=== PATIENT | male | born 1965 | race Caucasian/White ===

== ENCOUNTER 2021-09-21 03:13 | Inpatient (IN) ==
[2021-09-21 03:31] VITALS: BMI 27.9
[2021-09-21 04:03] LABS: BASOPHILS # (AUTO) 0.1 X10^3/uL (0.0-0.1); BASOPHILS % (AUTO) 1.4 % (0.2-1.0); EOSINOPHILS % (AUTO) 0.4 % (0.9-2.9); HEMATOCRIT 34.5 % (42.0-54.0); HEMOGLOBIN 12.4 g/dL (13.5-18.0); LYMPHOCYTES # (AUTO) 1.3 X10^3/uL (1.3-2.9); LYMPHOCYTES % (AUTO) 22.4 % (21.0-51.0); MEAN CORPUSCULAR HEMOGLOBIN 32.5 pg (27.0-34.0); MEAN CORPUSCULAR HGB CONC 36.1 g/dL (33.0-35.0); MEAN CORPUSCULAR VOLUME 90.2 fL (80.0-100.0); MEAN PLATELET VOLUME 9.3 fL (7.4-11.0); MONOCYTES # (AUTO) 0.8 x10^3/uL (0.3-0.8); MONOCYTES % (AUTO) 14.5 % (0.0-13.0); NEUTROPHILS # (AUTO) 3.5 x10^3/uL (2.2-4.8); NEUTROPHILS % (AUTO) 61.3 % (42.0-75.0); RED BLOOD COUNT 3.82 X10^6/uL (4.7-6.0); RED CELL DISTRIBUTION WIDTH 13.9 % (11.6-16.5); WHITE BLOOD COUNT 5.7 X10^3/uL (3.6-10.0)
[2021-09-21 04:42] LABS: ALANINE AMINOTRANSFERASE 52 Units/L (12-78); ALBUMIN 3.8 g/dL (3.4-5.0); ALKALINE PHOSPHATASE 88 Units/L (46-116); ASPARTATE AMINO TRANSFERASE 55 Units/L (15-37); BAND NEUTROPHILS % 8 % (0-10); BLOOD UREA NITROGEN 20 mg/dL (7-18); CALCIUM 7.8 mg/dL (8.5-10.1); CARBON DIOXIDE 27.7 mmol/L (21-32); CHLORIDE 91 mmol/L (98-107); CKMB % 2.3 % (<4); CREATINE KINASE 185 Units/L (39-308); CREATININE 1.54 mg/dL (0.70-1.30); PLATELET MORPHOLOGY COMMENT NORMAL (NORMAL); eGFR NON BLACK RACES 50 (>60)
[2021-09-21 04:43] LABS: CREATINE KINASE MB 4.3 ng/mL (0-4.0)
[2021-09-21 04:44] LABS: SODIUM 122 mmol/L (136-145)
--- NOTE | 2021-09-21 04:52 | CT ---
PROCEDURE: CT Head without Contrast .HISTORY: Blurred vision with nausea.TECHNIQUE: Axial images were performed through the head without the administration of IV contrast with multiplanar reformations . Dose reduction techniques including Automated Exposure Control (AEC) and adjustment of mA and kV were utilized .COMPARISON: 01/20/2021.TECHNICAL QUALITY: Satisfactory .FINDINGS:Brain shows no mass, hemorrhage, or acute stroke.Minimal periventricular old micro ischemic changes.Ventricles are normal size for patient's age.No acute skull or scalp abnormality.Visualized sinuses and mastoids are clear.IMPRESSION:1. No acute intracranial abnormality.2. Mild senescent changes.Electronically signed by: Dick Awan (Sep 21, 2021 04:50:49)
--- NOTE | 2021-09-21 05:02 | RAD ---
PROCEDURE: Chest X-ray 1 View .HISTORY: Chest pain and nausea.TECHNIQUE: AP view .COMPARISON: 01/20/2021.TECHNICAL QUALITY: Satisfactory .FINDINGS:Normal size heart .Mediastinum and hilar regions show no masses or lymphadenopathy .Normal central vascularity .No pulmonary consolidation, masses, pleural fluid, or pneumothorax .No acute bony abnormality .IMPRESSION:No active cardiopulmonary disease .Electronically signed by: Dick Awan (Sep 21, 2021 05:01:20)
[2021-09-21] MEDS ORDERED: ZOFRAN INJ 4 MG VIAL IVP ONE ×3 (05:17→07:01)
[2021-09-21] MEDS ORDERED: ZOFRAN INJ 4 MG VIAL ONE ×2 (05:20→06:52)
[2021-09-21] MEDS ORDERED: NS 1,000 ML IV 1,000 ML ONE (05:21)
[2021-09-21] MEDS ORDERED: NS 1,000 ML IV 1,000 ML IV ONE (05:35)
--- NOTE | 2021-09-21 05:55 | DR.CP ---
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 PT STATES "IT COULD BE MY ACID REFLUX". PT STATES HE WAS NAUSEOUS "MOST OF DAY" 09/20/21 WITH BURPING. PT STATES CHEST STARTED BURNING AND BURNING RADIATED UP LEFT SIDE OF NECK. PT STATES 2 HRS AGO BP WAS 178/103 THEN HE TOOK CLONIDINE AND IT CAME DOWN TO 130/80. Self Treatment fo Chief Complaint: CLONIDINE, MYLANTA, NEXIUM COVID-19 Coronavirus risk:travel/contact w/high risk person: No Has patient experienced Coronavirus symptoms: No Source History Provided: Patient Mode of Arrival Mode of Arrival: Ambulatory Timing Onset of Chief Complaint: 09/20/21 Came on: Gradually Duration Duration: Intermittent Duration: Days Location Location of Chest Pain: Chest Chest Pain Radiation Location: Neck Context Onset: At rest Cardiac Risk Factors: HTN PE Risk Factors: None History of: Valve Disease Prehospital Care: None Quality Quality: Burning Severity Severity: Moderate Modifying Factors Worsens: Nothing Impoves: Nothing and Other Associated Signs and Symptoms Associated Signs and Symptoms: Nausea/Vomiting PMH PMH Past Medical History: Yes Past Medical History: Angina, Arthritis, Dyslipidemia, GERD, Gout, Hypertension and Hypothyroidism Past Medical History Comment: 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 RHEUMATOID ARTHRITIS CKD STAGE 3 Past Surgical History: Yes Surgical History: AAA Repair, CABG/Valve Surgery, Cholecystectomy and Other Past Surgical History Comment: OPEN HEART X2 LEFT FACE RECONSTRUCTION 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 REMOVED Family History History of Family Medical Conditions: Yes Family Medical History: Diabetes Mellitus, Coronary Artery Disease and Hypertension Social History Alcohol Use: None Do you use any recreational Drugs:: No Travel Risk Coronavirus risk:travel/contact w/high risk person: No Has patient experienced Coronavirus symptoms: No Infectious screening Have you traveled outside the country in the last 6 months?: No Isolation: Standard ROS Review of Systems Constitutional: Malaise and Fatigue Eyes: Blurred Vision ENTM: No Symptoms Reported Respiratoy: No Symptoms Reported Cardiovascular: See HPI Gastrointestinal/Abdominal: Nausea Genitourinary: No Symptoms Reported Neurological: No Symptoms Reported Musculoskeletal: Joint Pain Hematologic/Lymphatic: Easy Bruising Endocrine: No Symptoms Reported PE Vitals Vitals: Temperature 98.3 F Pulse Rate 64 Respiratory Rate 30 Blood Pressure [Left Arm] 167/97 Blood Pressure [Right Arm] 132/70 Blood Pressure 134/78 O2 Sat by Pulse Oximetry 100 General Limitations: No Limitations General Appearance: Alert and In No Apparent Distress Head Head Exam: Normal Inspection, Atraumatic and Normocephalic Eyes Eye exam: Normal Appearance and PERRL ENT ENT Exam: Normal Oropharynx and Mucous Membranes Moist Chest Chest Inspection: Normal Inspection and Symmetric Chest Wall Rise Respiratory Respiratory Exam: Normal Lung Sounds Bilat Respiratory Exam: Bilateral: Clear to Auscultation Cardiovascular Cardiovascular Exam: +S1 and +S2 Abdominal Exam Abdominal Exam: Normal Inspection, Normal Bowel Sounds and Soft Extremities Extremities Exam: Full ROM and Other (shining skin over the shins ) Neurologic Neurological Exam: Alert and Oriented X3 Skin Skin Exam: Normal Color MDM Differential Diagnosis Differential Diagnosis: Esophageal Reflux/Spasm, Myocardial Infarction and Pneumonia COURSE Treatment Treatment: ekg ,labs cardiac enzymes neg except ckmb 43.D dimer 1.02 possibly sec to disease condition of wegeners sodium 122 will start patient on normal saline spoke with Dr Barraza agreed to admit patient ROR Labs Reviewed Laboratory Results Reviewed?: Yes Result Diagrams: 09/21/21 03:55 09/21/21 03:55 Laboratory: WBC 5.7 X10^3/uL (3.6-10.0) 09/21/21 03:55 RBC 3.82 X10^6/uL (4.7-6.0) L 09/21/21 03:55 Hgb 12.4 g/dL (13.5-18.0) L 09/21/21 03:55 Hct 34.5 % (42.0-54.0) L 09/21/21 03:55 MCV 90.2 fL (80.0-100.0) 09/21/21 03:55 MCH 32.5 pg (27.0-34.0) 09/21/21 03:55 MCHC 36.1 g/dL (33.0-35.0) H 09/21/21 03:55 RDW 13.9 % (11.6-16.5) 09/21/21 03:55 Plt Count 100 X10^3/uL (150.0-450.0) L 09/21/21 03:55 Plt Count Comment Decreased (ADEQUATE) 09/21/21 03:55 MPV 9.3 fL (7.4-11.0) 09/21/21 03:55 Neut % (Auto) 61.3 % (42.0-75.0) 09/21/21 03:55 Lymph % (Auto) 22.4 % (21.0-51.0) 09/21/21 03:55 Hernando % (Auto) 14.5 % (0.0-13.0) H 09/21/21 03:55 Eos % (Auto) 0.4 % (0.9-2.9) L 09/21/21 03:55 Baso % (Auto) 1.4 % (0.2-1.0) H 09/21/21 03:55 Neut # (Auto) 3.5 x10^3/uL (2.2-4.8) 09/21/21 03:55 Lymph # (Auto) 1.3 X10^3/uL (1.3-2.9) 09/21/21 03:55 Hernando # (Auto) 0.8 x10^3/uL (0.3-0.8) 09/21/21 03:55 Eos # (Auto) 0.0 x10^3/uL (0.0-0.2) 09/21/21 03:55 Baso # (Auto) 0.1 X10^3/uL (0.0-0.1) 09/21/21 03:55 Absolute Nucleated RBC 0.1 /100WBC 09/21/21 03:55 Total Counted 100 09/21/21 03:55 Neutrophils % (Manual) 60 % (39-76) 09/21/21 03:55 Band Neutrophils % 8 % (0-10) 09/21/21 03:55 Lymphocytes % (Manual) 19 % (13-43) 09/21/21 03:55 Monocytes % (Manual) 13 % (4-9) H 09/21/21 03:55 Plt Morphology Comment Normal (NORMAL) 09/21/21 03:55 RBC Morphology Normal (NORMAL) 09/21/21 03:55 PT 22.6 SECONDS (11.8-14.3) 09/21/21 03:55 INR Target Range - 09/21/21 03:55 INR 2.11 (0.8-1.3) H 09/21/21 03:55 APTT 29.3 SECONDS (22.9-36.5) 09/21/21 03:55 PTT Comment - 09/21/21 03:55 D-Dimer 1.02 ug/ml (0.0-0.57) H* 09/21/21 03:55 D-Dimer Cancelled 09/21/21 03:55 Sodium 122 mmol/L (136-145) L* 09/21/21 03:55 Corrected Sodium TNP 09/21/21 03:55 Potassium 4.3 mmol/L (3.5-5.1) 09/21/21 03:55 Chloride 91 mmol/L (98-107) L 09/21/21 03:55 Carbon Dioxide 27.7 mmol/L (21-32) 09/21/21 03:55 BUN 20 mg/dL (7-18) H 09/21/21 03:55 Creatinine 1.54 mg/dL (0.70-1.30) H 09/21/21 03:55 Est GFR (MDRD) Af Amer 60 (>60) 09/21/21 03:55 Est GFR (MDRD) Non-Af 50 (>60) L 09/21/21 03:55 Glucose 103 mg/dL (65-99) H 09/21/21 03:55 Calcium 7.8 mg/dL (8.5-10.1) L 09/21/21 03:55 Corrected Calcium TNP 09/21/21 03:55 Total Bilirubin 1.70 mg/dL (0.2-1.0) H 09/21/21 03:55 AST 55 Units/L (15-37) H 09/21/21 03:55 ALT 52 Units/L (12-78) 09/21/21 03:55 Alkaline Phosphatase 88 Units/L (46-116) 09/21/21 03:55 Creatine Kinase 185 Units/L (39-308) 09/21/21 03:55 CK-MB (CK-2) 4.3 ng/mL (0-4.0) H* 09/21/21 03:55 CK/CKMB % Calc 2.3 % (<4) 09/21/21 03:55 Troponin I High Sens 14.2 ng/L (4.0-60.0) 09/21/21 03:55 Total Protein 6.0 g/dL (6.4-8.2) L 09/21/21 03:55 Albumin 3.8 g/dL (3.4-5.0) 09/21/21 03:55 Globulin 2.2 g/dL (2.5-4.5) L 09/21/21 03:55 Albumin/Globulin Ratio 1.7 Ratio (1.1-2.1) 09/21/21 03:55 Opioid Opioid Risk Tool Age (Joseph box if 16-45): No History of Preadolescent Sexual Abuse: No Total: 0 Total Score Risk Category: Low Risk Copyright: Cayden SMITH predicting aberrant behaviors Diagnosis Discharge Problem: Acute hyponatremia, GERD without esophagitis, Nausea, 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 Patient Portal Social Distancing
[2021-09-21] MEDS ORDERED: PROTONIX INJ 40 MG VIAL IVP ONE (06:49)
[2021-09-21] MEDS ORDERED: PROTONIX INJ 40 MG VIAL ONE (06:52)
[2021-09-21] MEDS ORDERED: ZOFRAN INJ 4 MG VIAL IVP PRN (07:01)
[2021-09-21] MEDS ORDERED: ALDACTONE TAB 25 MG PO SCH (09:00)
[2021-09-21] MEDS ORDERED: PROTONIX INJ 40 MG VIAL IVP SCH (09:00)
[2021-09-21] MEDS ORDERED: SYNTHROID 100 mcg TAB PO SCH (09:00)
[2021-09-21 11:06] LABS: CKMB % 2.2 % (<4); CREATINE KINASE MB 3.4 ng/mL (0-4.0)
[2021-09-21] MEDS: ZYLOPRIM PO SCH ×2 (11:49→22:22)
[2021-09-21] MEDS: NS 1,000 ML IV 1,000 ML IV SCH ×2 (11:49→15:41)
[2021-09-21] MEDS: PLAQUENIL PO SCH ×3 (11:50→22:22)
[2021-09-21] MEDS: COUMADIN TAB 5 MG (JANTOVEN) PO SCH (11:50)
[2021-09-21] MEDS: COREG TAB 25 MG PO SCH ×2 (11:51→22:21)
[2021-09-21] MEDS: TYLENOL 325 MG TAB PO PRN (15:00)
--- NOTE | 2021-09-21 15:26 | DR.H&P ---
H&P History & Physical for Day of: H&P Date: 09/21/21 Chief Complaint Chief Complaint: Burning in chest. Allergies Allergies Allergy/AdvReac Type Severity Reaction Status Date / Time lisinopril Allergy Verified 09/21/21 03:33 naproxen Allergy Verified 09/21/21 03:33 valsartan Allergy Verified 09/21/21 03:33 History of Present Illness History of Present Illness: This is a pleasant 56-year-old white male. He presented to the emergency department with burning in the chest since the previous day. 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 He thinks the burning in his chest of acid reflux but could be the medication. Cardiac enzymes were drawn in the emergency department and were negative. It is noted however that his sodium was 122 and that he also had this before taking hydroxychloroquine. Chest x-ray did not show any acute cardiopulmonary process. CT of the brain was within normal limits. Patient is admitted for IV hydration for his hyponatremia and mild dehydration. Past Medical History Past Medical History: Angina, Arthritis, Dyslipidemia, GERD, Gout, Hypertension and Hypothyroidism Past Surgical History Surgical History: AAA Repair, CABG/Valve Surgery, Cholecystectomy and Other Family History Family Medical History: Diabetes Mellitus, Coronary Artery Disease and Hypertension Social History Does patient currently use any type of tobacco product: No Have you used tobacco products in the last 12 months: No Type of Tobacco Use: None Does any household member use tobacco: No Alcohol Use: None Drug Use: None Medications Home Medications: lisinopril Allergy (Verified 09/21/21 03:33) naproxen Allergy (Verified 09/21/21 03:33) valsartan Allergy (Verified 09/21/21 03:33) CONTINUE taking the following medications allopurinol 100 mg PO DAILY 09/21/21 [History] atorvastatin [Lipitor] 10 mg PO QHS 09/21/21 [History] carvedilol 25 mg PO BID 09/21/21 [History] hydroxychloroquine 200 mg PO DAILY 09/21/21 [History] methylprednisolone 6 - 8 mg PO DAILY 09/21/21 [History] spironolactone 25 mg PO DAILY 09/21/21 [History] telmisartan 40 mg PO BID 09/21/21 [History] warfarin 5 mg PO DAILY 09/21/21 [History] Labs Result Diagrams: 09/21/21 03:55 09/21/21 03:55 Labs: Laboratory WBC 5.7 X10^3/uL (3.6-10.0) 09/21/21 03:55 RBC 3.82 X10^6/uL (4.7-6.0) L 09/21/21 03:55 Hgb 12.4 g/dL (13.5-18.0) L 09/21/21 03:55 Hct 34.5 % (42.0-54.0) L 09/21/21 03:55 MCV 90.2 fL (80.0-100.0) 09/21/21 03:55 MCH 32.5 pg (27.0-34.0) 09/21/21 03:55 MCHC 36.1 g/dL (33.0-35.0) H 09/21/21 03:55 RDW 13.9 % (11.6-16.5) 09/21/21 03:55 Plt Count 100 X10^3/uL (150.0-450.0) L 09/21/21 03:55 Plt Count Comment Decreased (ADEQUATE) 09/21/21 03:55 MPV 9.3 fL (7.4-11.0) 09/21/21 03:55 Neut % (Auto) 61.3 % (42.0-75.0) 09/21/21 03:55 Lymph % (Auto) 22.4 % (21.0-51.0) 09/21/21 03:55 Ness % (Auto) 14.5 % (0.0-13.0) H 09/21/21 03:55 Eos % (Auto) 0.4 % (0.9-2.9) L 09/21/21 03:55 Baso % (Auto) 1.4 % (0.2-1.0) H 09/21/21 03:55 Neut # (Auto) 3.5 x10^3/uL (2.2-4.8) 09/21/21 03:55 Lymph # (Auto) 1.3 X10^3/uL (1.3-2.9) 09/21/21 03:55 Ness # (Auto) 0.8 x10^3/uL (0.3-0.8) 09/21/21 03:55 Eos # (Auto) 0.0 x10^3/uL (0.0-0.2) 09/21/21 03:55 Baso # (Auto) 0.1 X10^3/uL (0.0-0.1) 09/21/21 03:55 Absolute Nucleated RBC 0.1 /100WBC 09/21/21 03:55 Total Counted 100 09/21/21 03:55 Neutrophils % (Manual) 60 % (39-76) 09/21/21 03:55 Band Neutrophils % 8 % (0-10) 09/21/21 03:55 Lymphocytes % (Manual) 19 % (13-43) 09/21/21 03:55 Monocytes % (Manual) 13 % (4-9) H 09/21/21 03:55 Plt Morphology Comment Normal (NORMAL) 09/21/21 03:55 RBC Morphology Normal (NORMAL) 09/21/21 03:55 PT 22.6 SECONDS (11.8-14.3) 09/21/21 03:55 INR Target Range - 09/21/21 03:55 INR 2.11 (0.8-1.3) H 09/21/21 03:55 APTT 29.3 SECONDS (22.9-36.5) 09/21/21 03:55 PTT Comment - 09/21/21 03:55 D-Dimer 1.02 ug/ml (0.0-0.57) H* 09/21/21 03:55 D-Dimer Cancelled 09/21/21 03:55 Sodium 122 mmol/L (136-145) L* 09/21/21 03:55 Corrected Sodium TNP 09/21/21 03:55 Potassium 4.3 mmol/L (3.5-5.1) 09/21/21 03:55 Chloride 91 mmol/L (98-107) L 09/21/21 03:55 Carbon Dioxide 27.7 mmol/L (21-32) 09/21/21 03:55 BUN 20 mg/dL (7-18) H 09/21/21 03:55 Creatinine 1.54 mg/dL (0.70-1.30) H 09/21/21 03:55 Est GFR (MDRD) Af Amer 60 (>60) 09/21/21 03:55 Est GFR (MDRD) Non-Af 50 (>60) L 09/21/21 03:55 Glucose 103 mg/dL (65-99) H 09/21/21 03:55 Calcium 7.8 mg/dL (8.5-10.1) L 09/21/21 03:55 Corrected Calcium TNP 09/21/21 03:55 Total Bilirubin 1.70 mg/dL (0.2-1.0) H 09/21/21 03:55 AST 55 Units/L (15-37) H 09/21/21 03:55 ALT 52 Units/L (12-78) 09/21/21 03:55 Alkaline Phosphatase 88 Units/L (46-116) 09/21/21 03:55 Creatine Kinase 153 Units/L (39-308) 09/21/21 10:17 CK-MB (CK-2) 3.4 ng/mL (0-4.0) 09/21/21 10:17 CK/CKMB % Calc 2.2 % (<4) 09/21/21 10:17 Troponin I High Sens 14.5 ng/L (4.0-60.0) 09/21/21 10:17 Total Protein 6.0 g/dL (6.4-8.2) L 09/21/21 03:55 Albumin 3.8 g/dL (3.4-5.0) 09/21/21 03:55 Globulin 2.2 g/dL (2.5-4.5) L 09/21/21 03:55 Albumin/Globulin Ratio 1.7 Ratio (1.1-2.1) 09/21/21 03:55 SARS CoV-2 RNA Rapid KUSHAL Negative (NEGATIVE) 09/21/21 06:44 Review of Systems Constitutional: Weakness Eyes: No Symptoms Reported ENT: No Symptoms Reported Respiratory: No Symptoms Reported Cardiovascular: Chest Pain Gastrointestinal: Other (Acid reflux) Genitourinary: No Symptoms Reported Musculoskeletal: No Symptoms Reported Skin: No Symptoms Reported Neurological: No Symptoms Reported Physical Exam Vital Signs: Temperature 98.1 F Pulse Rate [Left Brachial] 64 Pulse Rate 64 Respiratory Rate 18 Blood Pressure [Left Arm] 120/67 Blood Pressure [Right Arm] 132/70 Blood Pressure 134/78 O2 Sat by Pulse Oximetry 97 Oriented: Normal, Time, Person and Place Eyes: Normal Ear: Normal Nose: Normal Throat: Normal Respiratory: Clear Throughout Cardiovascular: Normal : Normal Auscultation: Bowel Sounds: Normal Tenderness: Normal Skin: Normal Musculoskeletal: Normal Psychiatric: Normal Mood Description: Calm Affect: Normal Speech Pattern: Clear and Appropriate Assessment/Plan (1) Hypertension: Status: Acute Plan: I will continue the patient on carvedilol 25 mg by mouth twice a day, telmisartan 40 mg by mouth twice a day and I will hold his Spironolactone at this time. (2) Acute hyponatremia: Status: Acute Plan: Normal saline IV hydration. I will recheck a CMP on him in the morning. (3) GERD without esophagitis: Status: Acute Plan: Omeprazole 40 mg by mouth daily (4) Jacob's granulomatosis: Qualifiers: Granulomatosis renal involvement: with renal involvement Qualified Code(s): M31.31 - Jacob's granulomatosis with renal involvement Status: Acute Plan: I will hold the patient's hydroxychloroquine at this time. 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 (8) Thrombocytopenia: Status: Acute Plan: I will recheck a CBC tomorrow morning. Review H&P Reviewed: Yes Patient was examined?: Yes
[2021-09-21 16:17] LABS: CKMB % 1.8 % (<4); CREATINE KINASE MB 2.3 ng/mL (0-4.0)
[2021-09-21] MEDS: METHYLPREDNISOLONE 4 MG PO SCH (17:37)
[2021-09-21] MEDS: PATIENT'S HOME MEDICATION (Telmisartan 80 mg tablet) PO SCH ×2 (17:38→22:55)
[2021-09-21] MEDS: LIPITOR TAB 10 MG PO SCH (22:22)
[2021-09-22] MEDS: NS 1,000 ML IV 1,000 ML IV SCH ×6 (03:08→23:13)
[2021-09-22] MEDS: SYNTHROID 100 mcg TAB PO SCH ×2 (05:11→08:26)
[2021-09-22 06:22] LABS: BASOPHILS % (AUTO) 0.5 % (0.2-1.0); EOSINOPHILS % (AUTO) 0.6 % (0.9-2.9); HEMATOCRIT 31.1 % (42.0-54.0); HEMOGLOBIN 11.4 g/dL (13.5-18.0); LYMPHOCYTES % (AUTO) 29.9 % (21.0-51.0); MEAN CORPUSCULAR HEMOGLOBIN 33.6 pg (27.0-34.0); MEAN CORPUSCULAR HGB CONC 36.8 g/dL (33.0-35.0); MEAN CORPUSCULAR VOLUME 91.3 fL (80.0-100.0); MEAN PLATELET VOLUME 9.7 fL (7.4-11.0); MONOCYTES # (AUTO) 0.4 x10^3/uL (0.3-0.8); MONOCYTES % (AUTO) 14.1 % (0.0-13.0); NEUTROPHILS # (AUTO) 1.8 x10^3/uL (2.2-4.8); NEUTROPHILS % (AUTO) 54.9 % (42.0-75.0); WHITE BLOOD COUNT 3.2 X10^3/uL (3.6-10.0)
[2021-09-22 06:44] LABS: ALANINE AMINOTRANSFERASE 50 Units/L (12-78); ALBUMIN 3.1 g/dL (3.4-5.0); ALKALINE PHOSPHATASE 78 Units/L (46-116); ASPARTATE AMINO TRANSFERASE 46 Units/L (15-37); BLOOD UREA NITROGEN 14 mg/dL (7-18); CARBON DIOXIDE 28.4 mmol/L (21-32); CHLORIDE 96 mmol/L (98-107); CKMB % 1.4 % (<4); COR CA(FOR HYPOALB) 7.7 mg/dL (8.5-10.1); CREATINE KINASE 86 Units/L (39-308); CREATINE KINASE MB 1.2 ng/mL (0-4.0); CREATININE 1.42 mg/dL (0.70-1.30); SODIUM 129 mmol/L (136-145); TOTAL PROTEIN 5.1 g/dL (6.4-8.2); eGFR NON BLACK RACES 54 (>60)
[2021-09-22 07:21] LABS: BAND NEUTROPHILS % 1 % (0-10); MYELOCYTES % 1
[2021-09-22 07:22] LABS: METAMYELOCYTES % 3; PLATELET MORPHOLOGY COMMENT NORMAL (NORMAL)
[2021-09-22] MEDS: PATIENT'S HOME MEDICATION (Telmisartan 80 mg tablet) PO SCH ×3 (08:23→20:26)
[2021-09-22] MEDS: ZYLOPRIM PO SCH ×2 (08:24→20:26)
[2021-09-22] MEDS: COREG TAB 25 MG PO SCH ×2 (08:24→20:25)
[2021-09-22] MEDS: COUMADIN TAB 5 MG (JANTOVEN) PO SCH (08:25)
[2021-09-22] MEDS: PLAQUENIL PO SCH ×3 (08:25→20:26)
[2021-09-22] MEDS: PriLOSEC PO SCH (08:26)
[2021-09-22] MEDS: METHYLPREDNISOLONE 4 MG PO SCH (08:35)
[2021-09-22] MEDS: TYLENOL 325 MG TAB PO PRN (12:33)
--- NOTE | 2021-09-22 16:01 | PCM.PROG ---
Progress Note Progress Note for Day of Date of Exam: 09/22/21 Subjective Subjective: The patient reports that he feels much better today. His sodium level is up to 129 this morning. This afternoon at 1500 we recheck his sodium level and it was 131. We will continue him on normal saline IV fluid and recheck his CMP in the morning and once his sodium has normalized we will discharge him home. We also would restart his home by mouth steroids that he routinely takes. Past Medical Family Social History Allergies: Allergies lisinopril Allergy (Verified 09/21/21 03:33) naproxen Allergy (Verified 09/21/21 03:33) valsartan Allergy (Verified 09/21/21 03:33) Vital Signs and I&O's Vital Signs: Temperature 98.3 F Pulse Rate [Left Brachial] 63 Pulse Rate 64 Respiratory Rate 18 Blood Pressure [Left Arm] 94/51 Blood Pressure [Right Arm] 132/70 Blood Pressure 134/78 O2 Sat by Pulse Oximetry 97 Intake and Output: Intake & Output 09/20/21 09/21/21 09/22/21 09/23/21 11:59 11:59 11:59 11:59 Intake Total 2870 / 2870 1715 / 1715 Output Total 2024 / 2024 1875 / 1875 Balance 845 / 845 -160 / -160 Physical Exam Oriented: Normal, Time, Person and Place Eyes: Normal Ear: Normal Nose: Normal Throat: Normal Respiratory: Normal Cardiovascular: Normal : Normal Auscultation: Bowel Sounds: Normal Tenderness: Normal Skin: Normal Musculoskeletal: Normal Psychiatric: Normal Mood Description: Calm Affect: Normal Speech Pattern: Clear and Appropriate Laboratory and Diagnostics Result Diagrams: 09/22/21 05:22 09/22/21 15:11 Labs: Laboratory WBC 3.2 X10^3/uL (3.6-10.0) L 09/22/21 05: RBC 3.40 X10^6/uL (4.7-6.0) L 09/22/21 05: Hgb 11.4 g/dL (13.5-18.0) L 09/22/21 05: Hct 31.1 % (42.0-54.0) L 09/22/21 05:22 MCV 91.3 fL (80.0-100.0) 09/22/21 05:22 MCH 33.6 pg (27.0-34.0) 09/22/21 05:22 MCHC 36.8 g/dL (33.0-35.0) H 09/22/21 05:22 RDW 14.0 % (11.6-16.5) 09/22/21 05:22 Plt Count 74 X10^3/uL (150.0-450.0) L 09/22/21 05:22 Plt Count Comment Decreased (ADEQUATE) 09/22/21 05:22 MPV 9.7 fL (7.4-11.0) 09/22/21 05:22 Neut % (Auto) 54.9 % (42.0-75.0) 09/22/21 05:22 Lymph % (Auto) 29.9 % (21.0-51.0) 09/22/21 05:22 Dundy % (Auto) 14.1 % (0.0-13.0) H 09/22/21 05:22 Eos % (Auto) 0.6 % (0.9-2.9) L 09/22/21 05:22 Baso % (Auto) 0.5 % (0.2-1.0) 09/22/21 05:22 Neut # (Auto) 1.8 x10^3/uL (2.2-4.8) L 09/22/21 05:22 Lymph # (Auto) 1.0 X10^3/uL (1.3-2.9) L 09/22/21 05:22 Dundy # (Auto) 0.4 x10^3/uL (0.3-0.8) 09/22/21 05:22 Eos # (Auto) 0.0 x10^3/uL (0.0-0.2) 09/22/21 05:22 Baso # (Auto) 0.0 X10^3/uL (0.0-0.1) 09/22/21 05:22 Absolute Nucleated RBC 0.2 /100WBC 09/22/21 05:22 Total Counted 100 09/22/21 05:22 Neutrophils % (Manual) 58 % (39-76) 09/22/21 05:22 Band Neutrophils % 1 % (0-10) 09/22/21 05:22 Lymphocytes % (Manual) 29 % (13-43) 09/22/21 05:22 Monocytes % (Manual) 8 % (4-9) 09/22/21 05:22 Metamyelocytes % 3 09/22/21 05:22 Myelocytes % 1 09/22/21 05:22 Plt Morphology Comment Normal (NORMAL) 09/22/21 05:22 RBC Morphology Normal (NORMAL) 09/22/21 05:22 PT 22.9 SECONDS (11.8-14.3) 09/22/21 05:22 INR Target Range - 09/22/21 05:22 INR 2.13 (0.8-1.3) H 09/22/21 05:22 APTT 29.3 SECONDS (22.9-36.5) 09/21/21 03:55 PTT Comment - 09/21/21 03:55 D-Dimer 1.02 ug/ml (0.0-0.57) H* 09/21/21 03:55 D-Dimer Cancelled 09/21/21 03:55 Sodium 131 mmol/L (136-145) L 09/22/21 15:11 Corrected Sodium TNP 09/22/21 05:22 Potassium 4.2 mmol/L (3.5-5.1) 09/22/21 05:22 Chloride 96 mmol/L (98-107) L 09/22/21 05:22 Carbon Dioxide 28.4 mmol/L (21-32) 09/22/21 05:22 BUN 14 mg/dL (7-18) 09/22/21 05:22 Creatinine 1.42 mg/dL (0.70-1.30) H 09/22/21 05:22 Est GFR (MDRD) Af Amer > 60 (>60) 09/22/21 05:22 Est GFR (MDRD) Non-Af 54 (>60) L 09/22/21 05:22 Glucose 74 mg/dL (65-99) 09/22/21 05:22 Calcium 7.0 mg/dL (8.5-10.1) L 09/22/21 05:22 Corrected Calcium 7.7 mg/dL (8.5-10.1) L 09/22/21 05:22 Total Bilirubin 1.00 mg/dL (0.2-1.0) 09/22/21 05:22 AST 46 Units/L (15-37) H 09/22/21 05:22 ALT 50 Units/L (12-78) 09/22/21 05:22 Alkaline Phosphatase 78 Units/L (46-116) 09/22/21 05:22 Creatine Kinase 86 Units/L (39-308) 09/22/21 05:22 CK-MB (CK-2) 1.2 ng/mL (0-4.0) 09/22/21 05:22 CK/CKMB % Calc 1.4 % (<4) 09/22/21 05:22 Troponin I High Sens 11.7 ng/L (4.0-60.0) 09/22/21 05:22 Total Protein 5.1 g/dL (6.4-8.2) L 09/22/21 05:22 Albumin 3.1 g/dL (3.4-5.0) L 09/22/21 05:22 Globulin 2.0 g/dL (2.5-4.5) L 09/22/21 05:22 Albumin/Globulin Ratio 1.6 Ratio (1.1-2.1) 09/22/21 05:22 SARS CoV-2 RNA Rapid KUSHAL Negative (NEGATIVE) 09/21/21 06:44 Plan (1) Hypertension: Status: Acute Narrative Support Text: Blood pressure is stable. Plan: I will continue the patient on carvedilol 25 mg by mouth twice a day, telmisartan 40 mg by mouth twice a day and I will hold his Spironolactone at this time. (2) Acute hyponatremia: Status: Acute Plan: Normal saline IV hydration. I will recheck a CMP on him in the morning. (3) GERD without esophagitis: Status: Acute Plan: Omeprazole 40 mg by mouth daily (4) Jacob's granulomatosis: Status: Acute Qualifiers: Granulomatosis renal involvement: with renal involvement Qualified Code(s): M31.31 - Jacob's granulomatosis with renal involvement Plan: I will hold the patient's hydroxychloroquine at this time. I will restart the patient's by mouth steroids at this time. (5) Nausea: Status: Acute Plan: Zofran when necessary (6) assisted (current) use of anticoagulants: Status: Acute Plan: Check daily PT/INR (7) Dehydration: Status: Acute Plan: IV hydration with normal saline solution. (8) Thrombocytopenia: Status: Acute Plan: I will recheck a CBC tomorrow morning.
[2021-09-22] MEDS: LIPITOR TAB 10 MG PO SCH (20:26)
[2021-09-23 06:08] LABS: BASOPHILS % (AUTO) 0.3 % (0.2-1.0); EOSINOPHILS % (AUTO) 0.3 % (0.9-2.9); HEMATOCRIT 31.3 % (42.0-54.0); LYMPHOCYTES # (AUTO) 0.8 X10^3/uL (1.3-2.9); LYMPHOCYTES % (AUTO) 20.9 % (21.0-51.0); MEAN CORPUSCULAR HEMOGLOBIN 32.5 pg (27.0-34.0); MEAN CORPUSCULAR HGB CONC 35.3 g/dL (33.0-35.0); MEAN CORPUSCULAR VOLUME 92.1 fL (80.0-100.0); MEAN PLATELET VOLUME 9.5 fL (7.4-11.0); MONOCYTES # (AUTO) 0.5 x10^3/uL (0.3-0.8); NEUTROPHILS # (AUTO) 2.4 x10^3/uL (2.2-4.8); NEUTROPHILS % (AUTO) 64.5 % (42.0-75.0); RED CELL DISTRIBUTION WIDTH 13.9 % (11.6-16.5); WHITE BLOOD COUNT 3.7 X10^3/uL (3.6-10.0)
[2021-09-23 06:21] LABS: ALANINE AMINOTRANSFERASE 44 Units/L (12-78); ALKALINE PHOSPHATASE 76 Units/L (46-116); ASPARTATE AMINO TRANSFERASE 39 Units/L (15-37); BLOOD UREA NITROGEN 12 mg/dL (7-18); CALCIUM 6.8 mg/dL (8.5-10.1); CARBON DIOXIDE 27.4 mmol/L (21-32); CHLORIDE 105 mmol/L (98-107); COR CA(FOR HYPOALB) 7.6 mg/dL (8.5-10.1); CREATININE 1.21 mg/dL (0.70-1.30); SODIUM 136 mmol/L (136-145); TOTAL PROTEIN 5.1 g/dL (6.4-8.2); eGFR NON BLACK RACES > 60 (>60)
[2021-09-23 08:05] VITALS: BP 129/67
[2021-09-23] MEDS: COREG TAB 25 MG PO SCH (09:23)
[2021-09-23] MEDS: PATIENT'S HOME MEDICATION (Telmisartan 80 mg tablet) PO SCH (09:23)
[2021-09-23] MEDS: ZYLOPRIM PO SCH (09:23)
[2021-09-23] MEDS: SYNTHROID 100 mcg TAB PO SCH (09:24)
[2021-09-23] MEDS: PLAQUENIL PO SCH (09:24)
[2021-09-23] MEDS: METHYLPREDNISOLONE 4 MG PO SCH (09:24)
[2021-09-23] MEDS: PriLOSEC PO SCH (09:28)
[2021-09-23] MEDS: COUMADIN TAB 5 MG (JANTOVEN) PO SCH (09:29)
--- NOTE | 2021-12-13 20:04 | PCM.DCPLAN ---
DISCHARGE SUMMARY Admission Date Date of Admission: 09/21/21 Discharge Date Discharge Date: 09/23/21 Admission Diagnoses (1) Hypertension: Status: Acute (2) Acute hyponatremia: Status: Acute (3) GERD without esophagitis: Status: Acute (4) Jacob's granulomatosis: Status: Acute (5) Nausea: Status: Acute (6) alf (current) use of anticoagulants: Status: Acute (7) Dehydration: Status: Acute (8) Thrombocytopenia: Status: Acute Discharge Diagnoses Discharge Diagnosis: 1. Acute hyponatremia resolved. 2. Chest discomfort resolved. 3. Dehydration resolved. 4. History of Jacob's granulomatosis stable. 5. Thrombocytopenia improved 6. History of GERD with esophagitis stable 7. Hypertensionstable. 8. Nausea resolved. Discharge Medications Discharge Medications: Home Medication List allopurinol 100 mg PO DAILY 09/21/21 [History] atorvastatin [Lipitor] 10 mg PO QHS 09/21/21 [History] carvedilol 25 mg PO BID 09/21/21 [History] hydroxychloroquine 200 mg PO DAILY 09/21/21 [History] methylprednisolone 6 - 8 mg PO DAILY 09/21/21 [History] spironolactone 25 mg PO DAILY 09/21/21 [History] telmisartan 40 mg PO BID 09/21/21 [History] warfarin 5 mg PO DAILY 09/21/21 [History] Prescriptions: Hospital Course Vital Signs: Temperature 98.2 F Pulse Rate [Left Brachial] 64 Pulse Rate 64 Respiratory Rate 20 Blood Pressure [Left Arm] 129/67 Blood Pressure [Right Arm] 132/70 Blood Pressure 134/78 O2 Sat by Pulse Oximetry 98 Latest Lab Results: Laboratory Last Values WBC 3.7 X10^3/uL (3.6-10.0) 09/23/21 05:16 RBC 3.40 X10^6/uL (4.7-6.0) L 09/23/21 05:16 Hgb 11.0 g/dL (13.5-18.0) L 09/23/21 05:16 Hct 31.3 % (42.0-54.0) L 09/23/21 05:16 MCV 92.1 fL (80.0-100.0) 09/23/21 05:16 MCH 32.5 pg (27.0-34.0) 09/23/21 05:16 MCHC 35.3 g/dL (33.0-35.0) H 09/23/21 05:16 RDW 13.9 % (11.6-16.5) 09/23/21 05:16 Plt Count 78 X10^3/uL (150.0-450.0) L 09/23/21 05:16 Plt Count Comment Decreased (ADEQUATE) 09/22/21 05:22 MPV 9.5 fL (7.4-11.0) 09/23/21 05:16 Neut % (Auto) 64.5 % (42.0-75.0) 09/23/21 05:16 Lymph % (Auto) 20.9 % (21.0-51.0) L 09/23/21 05:16 [place] % (Auto) 14.0 % (0.0-13.0) H 09/23/21 05:16 Eos % (Auto) 0.3 % (0.9-2.9) L 09/23/21 05:16 Baso % (Auto) 0.3 % (0.2-1.0) 09/23/21 05:16 Neut # (Auto) 2.4 x10^3/uL (2.2-4.8) 09/23/21 05:16 Lymph # (Auto) 0.8 X10^3/uL (1.3-2.9) L 09/23/21 05:16 [place] # (Auto) 0.5 x10^3/uL (0.3-0.8) 09/23/21 05:16 Eos # (Auto) 0.0 x10^3/uL (0.0-0.2) 09/23/21 05:16 Baso # (Auto) 0.0 X10^3/uL (0.0-0.1) 09/23/21 05:16 Absolute Nucleated RBC 0.1 /100WBC 09/23/21 05:16 Total Counted 100 09/22/21 05:22 Neutrophils % (Manual) 58 % (39-76) 09/22/21 05:22 Band Neutrophils % 1 % (0-10) 09/22/21 05:22 Lymphocytes % (Manual) 29 % (13-43) 09/22/21 05:22 Monocytes % (Manual) 8 % (4-9) 09/22/21 05:22 Metamyelocytes % 3 09/22/21 05:22 Myelocytes % 1 09/22/21 05:22 Plt Morphology Comment Normal (NORMAL) 09/22/21 05:22 RBC Morphology Normal (NORMAL) 09/22/21 05:22 PT 22.9 SECONDS (11.8-14.3) 09/22/21 05:22 INR Target Range - 09/22/21 05:22 INR 2.13 (0.8-1.3) H 09/22/21 05:22 APTT 29.3 SECONDS (22.9-36.5) 09/21/21 03:55 PTT Comment - 09/21/21 03:55 D-Dimer 1.02 ug/ml (0.0-0.57) H* 09/21/21 03:55 D-Dimer Cancelled 09/21/21 03:55 Sodium 136 mmol/L (136-145) 09/23/21 05:16 Corrected Sodium TNP 09/23/21 05:16 Potassium 4.4 mmol/L (3.5-5.1) 09/23/21 05:16 Chloride 105 mmol/L (98-107) 09/23/21 05:16 Carbon Dioxide 27.4 mmol/L (21-32) 09/23/21 05:16 BUN 12 mg/dL (7-18) 09/23/21 05:16 Creatinine 1.21 mg/dL (0.70-1.30) 09/23/21 05:16 Est GFR (MDRD) Af Amer > 60 (>60) 09/23/21 05:16 Est GFR (MDRD) Non-Af > 60 (>60) 09/23/21 05:16 Glucose 97 mg/dL (65-99) 09/23/21 05:16 Calcium 6.8 mg/dL (8.5-10.1) L 09/23/21 05:16 Corrected Calcium 7.6 mg/dL (8.5-10.1) L 09/23/21 05:16 Total Bilirubin 0.60 mg/dL (0.2-1.0) 09/23/21 05:16 AST 39 Units/L (15-37) H 09/23/21 05:16 ALT 44 Units/L (12-78) 09/23/21 05:16 Alkaline Phosphatase 76 Units/L (46-116) 09/23/21 05:16 Creatine Kinase 86 Units/L (39-308) 09/22/21 05:22 CK-MB (CK-2) 1.2 ng/mL (0-4.0) 09/22/21 05:22 CK/CKMB % Calc 1.4 % (<4) 09/22/21 05:22 Troponin I High Sens 11.7 ng/L (4.0-60.0) 09/22/21 05:22 Total Protein 5.1 g/dL (6.4-8.2) L 09/23/21 05:16 Albumin 3.0 g/dL (3.4-5.0) L 09/23/21 05:16 Globulin 2.1 g/dL (2.5-4.5) L 09/23/21 05:16 Albumin/Globulin Ratio 1.4 Ratio (1.1-2.1) 09/23/21 05:16 SARS CoV-2 RNA Rapid KUSHAL Negative (NEGATIVE) 09/21/21 06:44 Hospital Course: After admission the patient was brought upstairs. Patient reported to me that he has recently restarted his hydroxychloroquine and he developed chest discomfort with that previously and he also developed hyponatremia previously after starting the hydroxychloroquine. That medication is being held at this time. We will continue him on IV normal saline for his hyponatremia in the improved by the following day and was rechecked later in the day and it and also continue to come up into the upper 120s. By the following day had normalized at 136. He has some nausea over the last couple days but that also has resolved. He is dehydration that he had on admission has resolved.Admission to 136 by following day had come up to 136 which was normal. His platelet count dropped from 100,000on the day of admission to 74,000 the next day but came up on the third day to 78,000. By the following day his sodium had normalized. By he was not having any further chest discomfort nausea had resolved and he felt much better. 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 Instructions Instructions: Dehydration, Adult, [id number] Rehydration, Adult Granulomatosis With Polyangiitis Hypertension, Adult, [id number] Hyponatremia, [id number] Forms: Precautions for COVID19 [facility] Social Distancing
== END 2021-09-23 10:15 | disposition home or self-care (01) | DRG 543 ==
LOC: ER 03:17 → MED/SURG 07:01
PROVIDERS: ADMIT Family Medicine; ATTEND Family Medicine
DX: Z20.822 Contact with and (suspected) exposure to COVID-19; E87.1 Hypo-osmolality and hyponatremia; M31.31 Wegener's granulomatosis with renal involvement; I10 Essential (primary) hypertension; K21.9 Gastro-esophageal reflux disease without esophagitis; Z79.01 Long term (current) use of anticoagulants; R07.89 Other chest pain; R94.31 Abnormal electrocardiogram [ECG] [EKG]; E86.0 Dehydration; R11.0 Nausea